=== PATIENT | female | born 1970 | race Caucasian/White ===

== ENCOUNTER 2019-01-26 22:21 | Emergency (ER) | payer BC ==
[2019-01-26 22:42] VITALS: BMI 21.8
[2019-01-26] MEDS ORDERED: SODIUM CHLORIDE 1,000 ML IV STA (23:05)
--- NOTE | 2019-01-26 23:55 | PDOC ---
Documentation entered by Jose Vallecillo SCRIBE, acting as scribe for Karolyn Mcpherson MD. Karoyln Mcpherson MD: This documentation has been prepared by the Avel hector Juan Manue, SCRIBE, under my direction and personally reviewed by me in its entirety. I confirm that the documentation accurately reflects all work, treatment, procedures, and medical decision making performed by me. 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 She states that her temperature went from 99.9 F to 103 F before stabilizing at 102 F. She informed her Oncologist of her symptoms, who suggested her come to the ED for further evaluation. She notes that she returned to work last month and denies any sick contacts during this time frame, at work or at home. She describes her headache as ranging from mild to moderate, constant in nature. The patient denies chest pain, shortness of breath, and dizziness. Denies vomiting, diarrhea or constipation. Allergies: Augmentin, Zantac, Emend Past surgical history: None reported Social History: No alcohol, tobacco or drug reported GENERAL/CONSTITUTIONAL: (+) Fever and chills. No weakness. HEAD, EYES, EARS, NOSE AND THROAT: No change in vision. No ear pain or discharge. No sore throat. CARDIOVASCULAR: No chest pain or shortness of breath. RESPIRATORY: No cough, wheezing, or hemoptysis. GASTROINTESTINAL: No nausea, vomiting, diarrhea or constipation. GENITOURINARY: No dysuria, frequency, or change in urination. MUSCULOSKELETAL: No joint or muscle swelling or pain. No neck or back pain. SKIN: No rash NEUROLOGIC: No headache, vertigo, loss of consciousness, or change in strength/ sensation. ENDOCRINE: No increased thirst. No abnormal weight change. HEMATOLOGIC/LYMPHATIC: No anemia, easy bleeding, or history of blood clots. ALLERGIC/IMMUNOLOGIC: No hives or skin allergy. GENERAL: Awake, alert, and fully oriented, in no acute distress HEAD: No signs of trauma EYES: PERRLA, EOMI, sclera anicteric, conjunctiva clear ENT: Auricles normal inspection, hearing grossly normal, nares patent, oropharynx clear without exudates. (+) Dry mucosa NECK: Normal ROM, supple, no lymphadenopathy, JVD, or masses LUNGS: Breath sounds equal, clear to auscultation bilaterally. No wheezes, and no crackles HEART: Regular rate and rhythm, normal S1 and S2, no murmurs, rubs or gallops ABDOMEN: (+) Mild right lower quadrant tenderness without rebound or voluntary guarding. Well healed midline and right upper quadrant surgical incision. Soft, normoactive bowel sounds. No masses EXTREMITIES: Normal range of motion, no edema. No clubbing or cyanosis. No cords, erythema, or tenderness NEUROLOGICAL: Cranial nerves II through XII grossly intact. Normal speech, normal gait SKIN: Warm, Dry, normal turgor, no rashes or lesions noted. Past History - Past Medical History Allergies/Adverse Reactions: Allergies Allergy/AdvReac Type Severity Reaction Status Date / Time amoxicillin [From Augmentin] Allergy Verified 01/26/19 22:28 aprepitant [From Emend] Allergy Verified 01/26/19 22:29 clavulanic acid Allergy Verified 01/26/19 22:28 [From Augmentin] fosaprepitant [From Emend] Allergy Verified 01/26/19 22:29 ranitidine [From Zantac] Allergy Verified 01/26/19 22:28 Home Medications: Ambulatory Orders Sennosides [Senna] 8.6 mg PO DAILY 01/26/19 ED Treatment Course - LABORATORY CBC & Chemistry Diagram: 01/26/19 23:25 01/26/19 23:25 Medical Decision Making - Medical Decision Making This 48-year-old woman presents with a history of cholangiocarcinoma, diagnosed approximately a year ago with subsequent treatment of surgery and chemotherapy. Most recent chemotherapy was in August of this year (stopped prematurely because of development of cholangitis). Since then, she has been clinically stable without significant fever, abdominal pain, vomiting or other acute symptoms. She felt "unwell" and fatigued for a few hours prior to onset of fever this evening. She had brief nausea which resolved spontaneously without vomiting. No significant pain was experienced. She came to this ER on the advice of her oncologist for "blood work". Exam, as noted, was generally unremarkable with an alert and comfortable, adult female with low-grade fever (100.2F orally without jaundice or signs of dehydration except for somewhat dry mucous membranes of her mouth. Abdomen was soft, nondistended, with mild right lower quadrant tenderness with no peritoneal irritation signs. Lab workup notable for normal white blood cell count of 6000 with left shift ( greater than 90% neutrophils). Chemistry was normal except for transaminases and alkaline phosphatase ([id number]). Lactic acid was less than 1; urinalysis was normal Patient received 1 L normal saline IV while diagnostic evaluation was ongoing. Results discussed with the patient and her . She continues to feel relatively well without onset of pain or nausea. She had a brief feeling of chills when IV fluids began but this resolved spontaneously. Although the patient does have cholestatic pattern of elevated transaminases and alkaline phosphatase ( bilirubin essentially normal), she has no progression of symptoms consistent with this diagnosis. Repeat measurement of temp subsequently revealed that patient had again become febrile at 101.6F. Patient given 600 mg ibuprofen and the patient's oncologist () called on his personal cell phone. Voicemail was left. No callback received after approximately half hour. Patient continued to feel well. She and her favored discharge at this time with follow- up (in a few hours) by text to her, oncologist and in person later on today either for diagnostic testing that had previously been scheduled or follow-up in the office. If she has rapid progression of symptoms (pain/persistent high fever/vomiting) that she will return to this ER. Since patient and her are very reliable, with extensive experience with the symptoms of acute cholangitis, the patient will be discharged with the above plan *DC/Admit/Observation/Transfer Diagnosis at time of Disposition: History of cholangitis Fever Qualifiers: Fever type: unspecified Qualified Code(s): R50.9 - Fever, unspecified - Discharge Dispostion Disposition: HOME Condition at time of disposition: Stable - Referrals - Patient Instructions Additional Instructions: followup with your oncologist tomorrow as discussed diagnostic imaging tomorrow as previously scheduled(at discretion of your oncologist) return to the ER immediately if you have worsening abdominal pain/persistent high fever/vomiting - Post Discharge Activity - Attestations Scribe Attestion: 01/26/19 23:17 Documentation prepared by Jose Vallecillo, acting as electromedical service engineer for Karolyn Mcpherson MD
[2019-01-27 00:10] LABS: BASO % 0.1 % (0-2.0); EOS % 0.5 % (0-4.5); HEMOGLOBIN 13.1 GM/dL (10.7-15.3); LYMPH % 3.3 % (8-40); MCH 31.7 pg (25.7-33.7); MCHC 33.5 g/dl (32.0-36.0); MEAN CELL VOLUME 94.6 fl (80-96); MEAN PLT VOLUME 7.7 fl (7.5-11.1); MONO % 6.6 % (3.8-10.2); NEUT % 89.5 % (42.8-82.8); PLATELET COUNT 99 K/MM3 (134-434); RBC 4.13 M/mm3 (3.60-5.2)
[2019-01-27 00:40] LABS: BILIRUBIN,TOTAL 1.1 mg/dL (0.2-1); BLOOD UREA NITROGEN 12.8 mg/dL (7-18); CALCIUM 8.8 mg/dL (8.5-10.1); CREATININE 0.8 mg/dL (0.55-1.3); POTASSIUM 3.7 mmol/L (3.5-5.1); TOT PROT 7.7 g/dl (6.4-8.2)
[2019-01-27] MEDS ORDERED: IBUPROFEN 600 MG TABLET (FP) PO ONE ×2 (01:04)
[2019-01-27 01:11] VITALS: BP 96/54; PULSE 104; TEMP 101.6
== END 2019-01-27 01:45 | disposition home or self-care (01) ==
LOC: FER 22:21
PROC: 3E0337Z Introduction of Electrolytic and Water Balance Substance into Peripheral Vein, Percutaneous Approach (ICD-10-PCS; principal; 2019-01-26)
DX: K83.09 Other cholangitis (principal); R50.9 Fever, unspecified
CPT/HCPCS: 36415; 80053; 81003; 81015; 82150; 83605; 85025; 87040; 99281-25; J7030

== ENCOUNTER 2023-02-23 13:38 | Emergency (ER) | payer BC ==
[2023-02-23 13:57] VITALS: BP 107/68; PULSE 74; RESP 18; TEMP 98.7; BMI 23.6
== END 2023-02-23 16:05 | disposition home or self-care (01) ==
LOC: FER 13:38
DX: S82.831A Other fracture of upper and lower end of right fibula, initial encounter for closed fracture (principal); W01.0XXA Fall on same level from slipping, tripping and stumbling without subsequent striking against object, initial encounter
CPT/HCPCS: 73590-TC-LT-FY; 73610-TC-RT-FY; 73630-TC-RT-FY; 99283-25